=== PATIENT | female | born 1995 | race Caucasian/White ===

== ENCOUNTER 2023-11-12 15:36 | Inpatient (IN) ==
[2023-11-12] MEDS: Piperacillin/Tazobac 3.375 BAG 3.375 GM/100 ML BAG IV ONE (16:37)
[2023-11-12] MEDS: Lactated Ringers SEPSIS* BAG 1,850 ML IV ONE (16:41)
[2023-11-12 16:45] LABS: Hematocrit 36.5 % (35-45); Hemoglobin 12.2 g/dL (11.5-14.3); Mean Corpuscular Hgb Conc 33.4 g/dL (31-36); Mean Corpuscular Volume 83.9 fL (80-97); Mean Platelet Volume 7.8 fL (7.5-11.2); Platelet Count 386 10^3/uL (150-450); Red Blood Count 4.36 10^6/uL (3.63-4.92); Red Cell Distribution Width 14.2 % (12-17); White Blood Count 21.4 10^3/uL (3.8-11.8)
[2023-11-12] MEDS: Iodixanol (CONTRAST) 320 MG/ML 100 ML SDV IV ONE (17:03)
[2023-11-12 17:12] LABS: ALT 20 U/L (7-52); AST 14 U/L (13-39); Albumin 3.3 g/dL (3.2-5.2); Albumin/Globulin Ratio 1.3 (1-3); Alkaline Phosphatase 60 U/L (35-149); Anion Gap 10 mmol/L (2-16); Blood Urea Nitrogen 24 mg/dL (6-24); CO2 Carbon Dioxide 25 mmol/L (22-32); Calcium 8.5 mg/dL (8.6-10.3); Chloride 101 mmol/L (101-111); Globulin 2.6 g/dL (2-4); Glucose 111 mg/dL (70-100); Magnesium 1.4 mg/dL (1.9-2.7); Potassium 4.6 mmol/L (3.5-5.0); Sodium 136 mmol/L (135-145); Total Bilirubin 0.9 mg/dL (0.2-1.0); Total Protein 5.9 g/dL (6.4-8.9)
[2023-11-12 17:14] LABS: High Sens Troponin Baseline 35 pg/mL (<15)
[2023-11-12 17:19] LABS: HCG Pregnancy < 0.60 mIU/mL
[2023-11-12] MEDS: Lactated Ringers 1000 ml BAG 1,000 ML IV ONE ×2 (17:19→17:56)
[2023-11-12] MEDS: Heparin DRIP 25,000 UNITS BAG 25,000 UNITS/250 ML BAG IV SCH ×2 (17:35→23:07)
[2023-11-12 17:45] LABS: ABS Basophils 0.1 10^3/uL (0.0-0.1); ABS Lymphocytes 0.9 10^3/uL (1.0-4.8); ABS Monocytes 1.1 10^3/uL (0.0-0.9); ABS Neutrophils 19.2 10^3/uL (1.5-7.6); ABS Nucleated RBC 0.01 10^3/ul; Eosinophil % 0.1 %; Lymphocyte % 4.1 %
[2023-11-12 17:55] LABS: Hematocrit 33.4 % (35-45); Hemoglobin 11.3 g/dL (11.5-14.3); Mean Corpuscular Hemoglobin 28.4 pg (27-33); Mean Corpuscular Hgb Conc 33.7 g/dL (31-36); Mean Corpuscular Volume 84.3 fL (80-97); Mean Platelet Volume 7.9 fL (7.5-11.2); Platelet Count 315 10^3/uL (150-450); Red Blood Count 3.97 10^6/uL (3.63-4.92); Red Cell Distribution Width 14.3 % (12-17); White Blood Count 16.4 10^3/uL (3.8-11.8)
[2023-11-12 18:00] LABS: Creatinine, Serum 1.53 mg/dL (0.51-0.95); eGFR CKD-EPI 46.7 (>60)
[2023-11-12] MEDS ORDERED: Heparin 5000 UNITS/ML 1 mL VIAL IV SCH (18:00)
[2023-11-12 18:11] LABS: Urine Appearance Clear; Urine Bilirubin Negative (Negative); Urine Blood Negative (Negative); Urine Color Light-Yellow; Urine Glucose Negative (Negative); Urine Ketones Negative (Negative); Urine Nitrite Negative (Negative); Urine Protein 1+ (>=30 mg/dL) (Negative); Urine Specific Gravity 1.042 (1.002-1.030); Urine Urobilinogen Negative (Negative); Urine pH 6.5 (5.0-8.0)
[2023-11-12 18:13] LABS: High Sensitivity Troponin 1 Hr 31 pg/mL (<15)
[2023-11-12 18:21] LABS: Creatinine, Serum 1.41 mg/dL (0.51-0.95); eGFR CKD-EPI 51.5 (>60)
[2023-11-12 18:21] LABS: Urine Bacteria Absent /HPF (Absent); Urine Red Blood Cell Trace(0-2/hpf) /HPF (0-Trace); Urine Squamous Epithelial Cell Present /HPF (Absent); Urine White Blood Cell Trace(0-5/hpf) /HPF (0-Trace)
[2023-11-12 18:31] LABS: ABS Basophils 0.1 10^3/uL (0.0-0.1); ABS Lymphocytes 0.8 10^3/uL (1.0-4.8); ABS Neutrophils 14.5 10^3/uL (1.5-7.6); ABS Nucleated RBC 0.01 10^3/ul; Eosinophil % 0.1 %; Lymphocyte % 4.8 %
[2023-11-12] MEDS ORDERED: Norepinephrine 4 MG/250mL D5W 4,000 MCG/250 ML BAG IV SCH (19:00)
[2023-11-12] MEDS: Magnesium Sulf 4 GM/100 ML IV 4,000 MG/100 ML BAG IVPB ONE (19:22)
[2023-11-12] MEDS: cefTRIAXone 1 gm/50 mL D5W 1 GM/50 ML BAG IV SCH (19:25)
[2023-11-12] MEDS: Heparin DRIP 25,000 UNITS BAG 25,000 UNITS/250 ML BAG IV ONE (22:56)
[2023-11-12 23:15] LABS: C Reactive Protein 526.99 mg/L (<8.01)
[2023-11-13 05:01] LABS: ABS Eosinophils 0.2 10^3/uL (0.0-0.5); ABS Lymphocytes 1.3 10^3/uL (1.0-4.8); ABS Monocytes 0.9 10^3/uL (0.0-0.9); ABS Neutrophils 14.1 10^3/uL (1.5-7.6); Eosinophil % 1.1 %; Hematocrit 30.7 % (35-45); Hemoglobin 10.4 g/dL (11.5-14.3); Lymphocyte % 7.6 %; Mean Corpuscular Hemoglobin 28.4 pg (27-33); Mean Corpuscular Volume 83.5 fL (80-97); Mean Platelet Volume 7.5 fL (7.5-11.2); Platelet Count 302 10^3/uL (150-450); Red Blood Count 3.68 10^6/uL (3.63-4.92); Red Cell Distribution Width 14.7 % (12-17); White Blood Count 16.5 10^3/uL (3.8-11.8)
[2023-11-13] MEDS: Heparin 5000 UNITS/ML 1 mL VIAL IV SCH (05:32)
[2023-11-13 06:01] LABS: Calcium 7.8 mg/dL (8.6-10.3); Creatinine, Serum 0.99 mg/dL (0.51-0.95); Magnesium 1.6 mg/dL (1.9-2.7); Potassium 3.4 mmol/L (3.5-5.0); eGFR CKD-EPI 78.7 (>60)
[2023-11-13] MEDS ORDERED: Pneumococcal 20-Valent Conj 0.5 ML SYR Vaccine IM ONE (09:00)
[2023-11-13] MEDS: Magnesium Sulfate 2 gm BAG 2 GM/50 ML BAG IVPB ONE (10:52)
[2023-11-13] MEDS: Potassium Chlor 20 meq TAB.ER PO ONE (10:53)
[2023-11-13] MEDS: Magnesium Sulfate IV 1GM/100ML 1 GM/100 ML BAG IV ONE (12:40)
[2023-11-13] MEDS ORDERED: Albuterol 2.5mg/3 ml (0.083%) NEB.SOLN INH PRN (20:20)
[2023-11-13] MEDS: guaiFENesin 100 mg/5 ml LIQ unit dose cup PO PRN (21:01)
[2023-11-13] MEDS: Albuterol HFA INHALER 8 gm MDI INH PRN (21:25)
[2023-11-14 06:56] LABS: ABS Eosinophils 0.5 10^3/uL (0.0-0.5); ABS Lymphocytes 1.3 10^3/uL (1.0-4.8); ABS Monocytes 0.6 10^3/uL (0.0-0.9); ABS Neutrophils 9.3 10^3/uL (1.5-7.6); Hematocrit 31.3 % (35-45); Hemoglobin 10.8 g/dL (11.5-14.3); Mean Corpuscular Hemoglobin 28.7 pg (27-33); Mean Corpuscular Hgb Conc 34.4 g/dL (31-36); Mean Corpuscular Volume 83.5 fL (80-97); Mean Platelet Volume 7.8 fL (7.5-11.2); Platelet Count 342 10^3/uL (150-450); Red Blood Count 3.75 10^6/uL (3.63-4.92); Red Cell Distribution Width 14.1 % (12-17); White Blood Count 11.6 10^3/uL (3.8-11.8)
[2023-11-14 07:37] LABS: Creatinine, Serum 0.78 mg/dL (0.51-0.95); Potassium 3.9 mmol/L (3.5-5.0); eGFR CKD-EPI 104.7 (>60)
[2023-11-15 05:11] LABS: ABS Eosinophils 0.5 10^3/uL (0.0-0.5); ABS Lymphocytes 1.8 10^3/uL (1.0-4.8); ABS Monocytes 0.8 10^3/uL (0.0-0.9); ABS Neutrophils 8.5 10^3/uL (1.5-7.6); ABS Nucleated RBC 0.01 10^3/ul; Eosinophil % 4.3 %; Hematocrit 31.4 % (35-45); Hemoglobin 10.6 g/dL (11.5-14.3); Lymphocyte % 15.2 %; Mean Corpuscular Hemoglobin 28.6 pg (27-33); Mean Corpuscular Hgb Conc 33.8 g/dL (31-36); Mean Corpuscular Volume 84.5 fL (80-97); Mean Platelet Volume 7.4 fL (7.5-11.2); Nucleated Red Blood Cells % 0.1 %/100WBC (0.0-0.8); Platelet Count 318 10^3/uL (150-450); Red Blood Count 3.72 10^6/uL (3.63-4.92); Red Cell Distribution Width 13.8 % (12-17); White Blood Count 11.6 10^3/uL (3.8-11.8)
[2023-11-15 05:50] LABS: Albumin 2.9 g/dL (3.2-5.2); Calcium 8.1 mg/dL (8.6-10.3); Creatinine, Serum 0.76 mg/dL (0.51-0.95); Globulin 2.9 g/dL (2-4); Total Bilirubin 0.2 mg/dL (0.2-1.0); Total Protein 5.8 g/dL (6.4-8.9)
[2023-11-15] MEDS: Amoxicillin/Clavul 875/125 TAB (Augmentin 875 tab) PO SCH (07:28)
[2023-11-15 11:03] LABS: High Sensitivity Troponin 1 Hr 16 pg/mL (<15)
[2023-11-15 11:43] LABS: Coagulation Factor V Assay 109 % (70 - 165)
[2023-11-15 13:15] LABS: Free Protein S Antigen 67 % (50 - 160)
[2023-11-15] MEDS: Ondansetron 4 mg VIAL 2 MG/ML 2 ml VIAL IV PRN (13:22)
[2023-11-15] MEDS: Azithromycin 500 mg/250 ml NS 500 MG/250 ML BAG IVPB SCH ×2 (18:29→20:45)
[2023-11-16 06:05] LABS: Hematocrit 35.3 % (35-45); Hemoglobin 11.7 g/dL (11.5-14.3); Mean Corpuscular Hemoglobin 28.7 pg (27-33); Mean Corpuscular Hgb Conc 33.2 g/dL (31-36); Mean Corpuscular Volume 86.4 fL (80-97); Mean Platelet Volume 7.4 fL (7.5-11.2); Platelet Count 348 10^3/uL (150-450); Red Blood Count 4.08 10^6/uL (3.63-4.92); Red Cell Distribution Width 14.6 % (12-17); White Blood Count 16.2 10^3/uL (3.8-11.8)
[2023-11-16 06:36] LABS: Anion Gap 13 mmol/L (2-16); Blood Urea Nitrogen 9 mg/dL (6-24); CO2 Carbon Dioxide 21 mmol/L (22-32); Calcium 8.4 mg/dL (8.6-10.3); Chloride 102 mmol/L (101-111); Creatinine, Serum 0.69 mg/dL (0.51-0.95); Glucose 100 mg/dL (70-100); Sodium 136 mmol/L (135-145); eGFR CKD-EPI 119.7 (>60)
[2023-11-16] MEDS ORDERED: Sulfur Hexaflouride MICROSPHR 25 MG VIAL ONE (09:55)
[2023-11-16] MEDS: Furosemide 20 mg/2 ml IV VIAL IV SLOW PU ONE (11:30)
[2023-11-16 12:30] VITALS: BP 138/89
[2023-11-16] MEDS: Pneumococcal 20-Valent Conj 0.5 ML SYR Vaccine IM ONE (13:23)
[2023-11-23 09:44] LABS: Protein C Antigen, Plasma 61 % (72-160)
== END 2023-11-16 14:25 | disposition home or self-care (01) | DRG 871 ==
LOC: EDHOLD 15:36 → ED 15:36 → ICU 22:24 → MEDTELE 11-13 14:43 → SUATTDRO 11-14 09:15
PROVIDERS: ADMIT Student in an Organized Health Care Education/Training Program; ATTEND Internal Medicine